=== PATIENT | male | born 1990 | race Asian ===

== ENCOUNTER 2023-02-06 05:06 | Emergency (ER) | payer OTHER ==
[~2023-02-06] VITALS: Ht 170.2 cm; Wt 74.8 kg
[~2023-02-06 05:06] MED LIST: ALBU0.0912 INH; PRED20TA5 PO
[2023-02-06 05:15] VITALS: BP 118/79; PULSE 95; RESP 17; TEMP 98; O2SAT 96
[2023-02-06] MEDS ORDERED: NACL 0.9% 1,000 ML IV ONE ×2 (06:15→08:25)
[2023-02-06 06:31] LABS: EOSINOPHILS % (AUTO) 0.2 % (0.0-4.0); HEMOGLOBIN 14.6 g/dL (12.0-18.0); LYMPHOCYTES # (AUTO) 0.5 K/uL (2.0-11.5); MEAN CORPUSCULAR HEMOGLOBIN 31 pg (27-31); MEAN CORPUSCULAR HGB CONC 34 g/dL (33-37); MEAN CORPUSCULAR VOLUME 91.4 fL (80-94); MONOCYTES # (AUTO) 0.4 K/uL (0.8-1.0); MONOCYTES % (AUTO) 3.2 % (1.7-9.3); NEUTROPHILS # (AUTO) 11.7 K/uL (1.8-7.7); NEUTROPHILS % (AUTO) 92.6 % (42.2-75.2); PLATELET COUNT (AUTO) 301 K/uL (140-450); RED CELL DISTRIBUTION WIDTH 13.9 % (11.6-13.7); WHITE BLOOD COUNT (AUTO) 12.6 K/uL (4.8-10.8)
[2023-02-06 06:48] LABS: ALBUMIN 3.6 g/dL (3.4-5.0); ANION GAP 14.3 (8-16); CALCIUM 8.9 mg/dL (8.5-10.1); CARBON DIOXIDE 23.9 mmol/L (21-32); CREATININE 1.1 mg/dL (0.6-1.3); POTASSIUM 4.2 mmol/L (3.5-5.1); TOTAL BILIRUBIN 0.5 mg/dL (0.0-1.0); TOTAL PROTEIN, SERUM 7.3 g/dL (6.4-8.2)
[2023-02-06 06:51] LABS: ALCOHOL, BLOOD 10 mg/dL (<10)
[2023-02-06 08:03] LABS: APPEARANCE,URINE CLEAR (CLEAR); BILIRUBIN,URINE NEGATIVE (NEGATIVE); BLOOD, URINE NEGATIVE (NEGATIVE); COLOR,URINE YELLOW (YELLOW); LEUKOCYTE ESTERASE ,URINE NEGATIVE (NEGATIVE); NITRITE, URINE NEGATIVE (NEGATIVE); PROTEIN,URINE TRACE (NEGATIVE); UGLUCOSE NEGATIVE (NEGATIVE); UROBILINOGEN,URINE 0.2 EU/dL (0.2 - 1)
[2023-02-06 08:24] LABS: AMPHETAMINE, URINE NEGATIVE ng/ml (NEG <=1000); BARBITURATE, URINE NEGATIVE ng/ml (NEG <=200); CANNABINOID, URINE POSITIVE ng/mL (NEG <=50); OPIATE, URINE NEGATIVE ng/mL (NEG <=2000); PHENCYCLIDINE SCREEN,URINE NEGATIVE ng/mL (NEG <=25)
[2023-02-06 08:25] LABS: BENZODIAZEPINE, URINE NEGATIVE ng/mL (NEG <=200); COCAINE, URINE NEGATIVE ng/mL (NEG <=300)
[2023-02-06] MEDS ORDERED: ONDANSETRON 4 MG/2 ML VIAL IVP ONE (08:25)
[2023-02-06 08:32] LABS: BACTERIA,URINE FEW /HPF (None Seen); MUCUS,URINE None Seen /LPF (None Seen); RBC,URINE 0-5 /HPF (0-5); SQUAMOUS EPITHELIAL CELL,UR 0-3 (FEW) /LPF (0-3 (FEW)); WBC,URINE 0-5 /HPF (0-5); YEAST,URINE None Seen /HPF (None Seen)
[2023-02-06 08:33] LABS: TRICHOMONAS,URINE None Seen /HPF (None Seen); WHITE BLOOD CELL CASTS,URINE None Seen /LPF (None Seen)
[2023-02-06] MEDS ORDERED: KETOROLAC 30 MG/ML VIAL IVP ONE (09:20)
[2023-02-06 11:22] VITALS: BP 103/56; PULSE 7; RESP 16; TEMP 97; O2SAT 99
== END 2023-02-06 11:24 | disposition home or self-care (01) ==
LOC: MED 05:06
DX: R55 Syncope and collapse (principal); E86.0 Dehydration; R07.89 Other chest pain; J45.909 Unspecified asthma, uncomplicated; F17.200 Nicotine dependence, unspecified, uncomplicated; Z79.899 Other long term (current) drug therapy
CPT/HCPCS: 36415; 71045; 71275; 80053; 80305; 81001; 83880; 84484; 85025; 85379; 93005; 96361; 96374; 96375; 99285; G0482; J1885; J2405; J7030; Q0092; Q9967

== ENCOUNTER 2023-02-13 03:18 | Emergency (ER) | payer OTHER ==
[~2023-02-13] VITALS: Ht 170.2 cm; Wt 74.8 kg
[2023-02-13 04:18] VITALS: BP 106/61; PULSE 78; RESP 16; TEMP 97.2; O2SAT 98
[2023-02-13] MEDS ORDERED: CYCLOBENZAPRINE 10 MG TAB PO ONE (05:05)
[2023-02-13] MEDS ORDERED: LIDOCAINE 5% 1 EA PATCH TP SCH (05:05)
[2023-02-13] MEDS ORDERED: KETOROLAC 30 MG/ML VIAL IM ONE (05:05)
[2023-02-13] MEDS ORDERED: NAPR-54 PO (06:29)
[2023-02-13] MEDS ORDERED: CYCL-711 PO (06:29)
[2023-02-13] MEDS ORDERED: ACET-10509 PO (06:29)
[2023-02-13] MEDS ORDERED: LID5T TP (06:29)
[2023-02-13] MEDS ORDERED: IBUP-2213 PO (06:29)
[2023-02-13 07:07] VITALS: BP 106/61; PULSE 78; RESP 16; TEMP 97.2; O2SAT 98
== END 2023-02-13 07:07 | disposition home or self-care (01) ==
LOC: MED 03:18
DX: S20.212A Contusion of left front wall of thorax, initial encounter (principal); J45.909 Unspecified asthma, uncomplicated; Z79.899 Other long term (current) drug therapy; Z79.1 Long term (current) use of non-steroidal anti-inflammatories (NSAID); W01.198A Fall on same level from slipping, tripping and stumbling with subsequent striking against other object, initial encounter; Y92.89 Other specified places as the place of occurrence of the external cause; Y93.89 Activity, other specified; Y99.8 Other external cause status
CPT/HCPCS: 71101; 93005; 96372; 99283; J1885; Q0092

== ENCOUNTER 2023-11-11 02:50 | Emergency (ER) | payer BC ==
[~2023-11-11] VITALS: Ht 172.7 cm; Wt 77.1 kg
[~2023-11-11 02:50] MED LIST changes: +ACET-10509 PO; +CYCL-711 PO; +IBUP-2213 PO; +LID5T TP; +NAPR-337 PO
[2023-11-11 02:55] VITALS: BP 131/87; PULSE 67; RESP 16; TEMP 96.7; O2SAT 98
[2023-11-11 04:37] VITALS: BP 115/70
[2023-11-11 04:38] VITALS: O2SAT 96
[2023-11-11] MEDS: IPRATROPIUM 0.02% 0.5 MG/2.5 ML NEBU INH ONE (04:38)
[2023-11-11] MEDS: ALBUTEROL 0.083% 2.5 MG/3 ML NEBU INH ONE (04:38)
[2023-11-11 04:39] VITALS: PULSE 67; RESP 19; O2SAT 97
[2023-11-11] MEDS ORDERED: ALBU0.0912 INH (05:16)
== END 2023-11-11 05:22 | disposition home or self-care (01) ==
LOC: MED 02:50
DX: J45.909 Unspecified asthma, uncomplicated (principal); Z79.1 Long term (current) use of non-steroidal anti-inflammatories (NSAID); Z79.899 Other long term (current) drug therapy
CPT/HCPCS: 94640; 99283; J7613; J7644